=== PATIENT | female | born 1985 | race Caucasian/White ===

== ENCOUNTER 2019-12-14 12:59 | Emergency (ER) | payer SELFPAY ==
[2019-12-14 13:17] VITALS: BP 133/69; PULSE 108; RESP 16; TEMP 36.7; O2SAT 96; BMI 31.9
[2019-12-14 13:20] VITALS: RESP 18
--- NOTE | 2019-12-14 13:38 | ED_ITS ---
HPI - Back Pain/Injury General: Chief Complaint: Back Pain/Injury Stated Complaint: back pain Time Seen by Provider: 12/14/19 13:22 History of Present Illness: HPI Narrative: Patient with back pain the last couple 3 days. Hurts to bend twist move get out of bed. 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 She has a history of low back pain. MD elicited complaint: back pain Onset (ago): day(s) Timing: constant Severity: moderate Similar Symptoms Previously: Yes Quality: sharp and aching Location: lumbar spine Radiation: buttocks Exacerbating factors: movement Relieving factors: immobilization Context: while lifting and turning/twisting Associated symptoms: Deny abdominal pain, chills, fever(s), nausea or vomiting Review of Systems Const: Denies: fever(s), chills or body aches Eyes: Denies: change in vision or blurry vision ENMT: Denies: throat pain or nasal congestion Card: Denies: chest pain or dyspnea on exertion Resp: Denies: dyspnea, productive cough or non-productive cough GI: Denies: abdominal pain, nausea or vomiting Musc: Reports: back pain; Denies: extremity pain Skin/Breast: Denies: rash Neuro: Denies: headache(s) Psych: Denies: anxiety or depression Srikanth/Lymph: Denies: easy bruising PFSH ED PFSH: Social History (Updated 12/14/19 @ 13:20 by Karen Andrews RN) Smoking and tobacco status: current every day smoker Alcohol intake: never Substance/Drug Use: never Female Reproductive History: Date of last menstrual period: 12/01/19 Physical Exam Const: COMMON NORMALS: no acute distress, average body habitus and patient oriented x3 HENMT: COMMON NORMALS: normocephalic HEAD & SCALP: normal to inspection and normocephalic FACE & SINUS: normal facial exam Eye: COMMON NORMALS: conjunctivae normal GENERAL EYE: appearance normal, both eyes and all related structures CONJUNCTIVA: Yes conjunctivae normal Neck/C-Spine: COMMON NORMALS: no JVD Chest: COMMONS NORMALS: normal inspection of the chest Resp: COMMON NORMALS: normal respiratory effort and clear to auscultation bilaterally AUSCULTATION: clear to auscultation bilaterally Cardio: COMMON NORMALS: no JVD, regular rate and regular rhythm RATE: regular rate RHYTHM: regular rhythm GI: COMMON NORMALS: Normal to inspection, nondistended, normoactive bowel sounds present Back/Pelvis: LUMBAR SPINE/LOWER BACK: Yes straight leg raise positive right and Yes straight leg raise positive left Extremity: COMMON NORMALS: normal to inspection and full ROM Neuro: COMMON NORMALS: patient oriented x3 Course Vital Signs: Vital signs: Vital Signs Temperature 98.1 F 12/14/19 13:17 Pulse Rate 108 H 12/14/19 13:17 Respiratory Rate 16 12/14/19 13:17 Blood Pressure 133/69 12/14/19 13:17 Pulse Oximetry 96 12/14/19 13:17 Discharge Plan Discharge Patient Disposition: Home Clinical Impression: Strain of lumbar region Qualifiers: Encounter type: initial encounter Qualified Code(s): S39.012A - Strain of muscle, fascia and tendon of lower back, initial encounter Condition: Stable Prescriptions: New Skelaxin 800 mg tablet 800 mg PO TID PRN (Reason: muscle pain) Qty: 14 RF: 0 prednisone 20 mg tablet 20 mg PO DAILY 11 Days Qty: 11 RF: 0 tramadol 50 mg tablet 50 mg PO Q6H PRN (Reason: pain) Qty: 14 RF: 0 Discharge Orders: Discharge Order (Routine); Ordered 12/14/19 Ordered By: Yaron Mathur Discharge Diet: Usual diet Discharge Activity: Limit activity as instructed Patient Instructions: Lumbar Radiculopathy (ED) Activity Restrictions/Additional Instructions: Follow-up with medical provider as directed. Take medications as prescribed. Return to the ER or your medical provider if condition worsens. Please read and understand discharge instructions. If any questions ask please. 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
[2019-12-14] MEDS: predniSONE 20 mg Tablet 60 MG PO (13:43)
[2019-12-14] MEDS: HYDROcodone-acetaminophen 7.5-325 mg Tablet 1 TAB PO (13:44)
[2019-12-14] MEDS: cyclobenzaprine 10 mg Tablet PO (13:44)
[2019-12-14 13:46] VITALS: RESP 18
== END 2019-12-14 13:46 | disposition home or self-care (01) ==
PROVIDERS: Emergency Provider Nurse Practitioner Family
DX: S39.012A Strain of muscle, fascia and tendon of lower back, initial encounter (principal); F17.210 Nicotine dependence, cigarettes, uncomplicated; X50.0XXA Overexertion from strenuous movement or load, initial encounter; Y93.F2 Activity, caregiving, lifting
CPT/HCPCS: 12345; 99281; 99283; J7512

== ENCOUNTER → 2020-10-15 13:40 | Outpatient (BNVA) | payer MEDICAID, SELFPAY | PROVIDERS: Visit Provider Nurse Practitioner Women's Health | DX: N92.6 Irregular menstruation, unspecified (principal) | CPT/HCPCS: 81025 ==

== ENCOUNTER 2020-10-17 18:11 | Outpatient (CLI) | payer MEDICAID, SELFPAY ==
[2020-10-17 18:31] LABS: Basophils # 0.1 10^3/uL (0.0-0.1); Basophils % 0.6 %; Eosinophils # 0.2 10^3/uL (0.0-0.8); Eosinophils % 1.5 %; Hemoglobin 13.4 g/dL (11.5-15.3); Lymphocytes # 2.9 10^3/uL (0.8-4.8); Lymphocytes % 22.7 %; Mean Corpuscular HGB Conc 32.7 g/dL (30.0-36.0); Mean Corpuscular Hemoglobin 30.1 pg (28.0-34.0); Mean Corpuscular Volume 92.1 fL (81-99); Mean Platelet Volume 8.7 fL (7.4-10.4); Monocytes # 0.7 10^3/uL (0.2-0.9); Monocytes % 5.7 %; Neutrophils % 68.9 %; Nucleated Red Blood Cells % 0 %; Platelet Count 332 10^3/cmm (130-400); Red Blood Count 4.45 10^6/uL (4.1-5.3); Red Cell Distribution Width 13.6 % (12.1-15.1); White Blood Count 12.6 10^3/uL (4.0-10.0)
== END 2020-10-17 18:12 | disposition home or self-care (01) ==
LOC: LAB 18:13
PROVIDERS: Visit Provider Nurse Practitioner Women's Health
DX: O02.1 Missed abortion (principal)
CPT/HCPCS: 36415; 84702; 85025

== ENCOUNTER → 2020-10-21 09:53 | Outpatient (BNVA) | payer MEDICAID, SELFPAY | PROVIDERS: Visit Provider Obstetrics & Gynecology | DX: Z11.3 Encounter for screening for infections with a predominantly sexual mode of transmission (principal); Z12.4 Encounter for screening for malignant neoplasm of cervix; O02.1 Missed abortion | CPT/HCPCS: 87491; 87591; 88175 ==

== ENCOUNTER 2020-10-22 15:22 | Emergency (ER) | payer MEDICAID, SELFPAY ==
[2020-10-22 16:02] VITALS: BP 156/104; PULSE 112; RESP 18; TEMP 36.8; O2SAT 96; BMI 35.3
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
[2020-10-22 17:46] VITALS: BP 136/74; PULSE 98; RESP 18; O2SAT 97
[2020-10-22 18:46] VITALS: BP 135/70; PULSE 94; RESP 16; O2SAT 99
== END 2020-10-22 18:52 | disposition home or self-care (01) ==
PROVIDERS: Emergency Provider Family Medicine
DX: S13.4XXA Sprain of ligaments of cervical spine, initial encounter (principal); V89.2XXA Person injured in unspecified motor-vehicle accident, traffic, initial encounter
CPT/HCPCS: 70450; 71250; 72125; 73070; 74176; 99283

== ENCOUNTER → 2020-11-07 10:54 | Outpatient (BNVA) | payer SELFPAY | PROVIDERS: Visit Provider Obstetrics & Gynecology | DX: O02.1 Missed abortion (principal) | CPT/HCPCS: 84702 ==

== ENCOUNTER 2020-11-17 21:05 | Day surgery (SDC) | payer SELFPAY ==
[2020-11-17 21:17] VITALS: BP 95/63; PULSE 91; RESP 16; TEMP 36.8; O2SAT 94; BMI 32.9
--- NOTE | 2020-11-17 21:35 | ED_ITS ---
HPI - Female Genitourinary General: Chief complaint: Urogenital-Female Stated complaint: MISCARRIAGE @ 1.5 MO AGO, GOING THROUGH 8 PADS/3HR Time Seen by Provider: 11/17/20 21:32 History of Present Illness: HPI Narrative: This patient is a 35-year-old female who presents to the emergency department for vaginal bleeding and passing clots. Patient became very short of breath dizzy and felt like she was going to pass out. Started having hyperventilation. Patient states she has been going through several pads in the past couple hours. Patient states she is been dealing with a miscarriage for the past 6 weeks. She discussed with her DIRECTOR BUSINESS MANAGEMENT to not have a D&C but try to pass it naturally. Patient states she has [facility] and states that everything on her lab work looked good. Patient started this vaginal bleeding has persisted. Will do medical evaluation treat as needed MD elicited complaint: vaginal bleeding Pertinent past history: prior miscarriages Onset (ago): hour(s) Associated symptoms: Deny abdominal pain, headache(s) or nausea Date of Last Menstrual Period: 07/26/20 Review of Systems General: Reports: 10 or more systems reviewed and unremarkable except in HPI and below Const: Denies: fever(s), chills, body aches or fatigue Eyes: Denies: change in vision or blurry vision ENMT: Denies: throat pain, hoarseness or mouth pain Card: Denies: chest pain, palpitations, irregular heart rhythm, edema, swelling of feet/ankles or lightheadedness Resp: Denies: dyspnea, productive cough, non-productive cough, wheezing or pain on inspiration GI: Denies: abdominal pain, nausea or vomiting : Reports: vaginal bleeding; Denies: flank pain, difficulty voiding, dysuria, urinary frequency, urinary urgency or urinary hesitancy Musc: Denies: neck pain, back pain, extremity pain, extremity swelling, joint pain, joint swelling, joint redness, joint warmth or limited range of motion Skin/Breast: Denies: rash, pruritus, erythema or skin tenderness Neuro: Denies: headache(s), numbness in extremities or weakness in extremities Psych: Denies: anxiety or depression PFS ED PFSH: Medical History No pertinent past medical history Denies diabetes, asthma, hypertension, seizures, DVT/PE PCP: None Surgical History Hx of chole[place]ectomy 2006[place] [facility] [place]. [place] History Grandmother Hypertension Maternal Diabetes Maternal Hypercholesteremia Maternal and Paternal Thyroid disease Paternal Ovarian cancer Maternal Grandmother--dx age at younger age, unsure of how old Grandfather Colon cancer Paternal--dx age 60's Denies family history of Heart disease Breast cancer Uterine cancer Stroke Female Reproductive History: Date of last menstrual period: 07/26/20 Physical Exam Const: COMMON NORMALS: no acute distress, average body habitus, patient oriented x3, no limitations, healthy appearing, alert and well nourished HENMT: COMMON NORMALS: normocephalic, atraumatic, hearing grossly normal bilaterally, external ears normal, EAC's normal, TM's normal bilaterally, Normal external nose present, Normal nasal mucous membranes and turbinates present, moist oral mucous membranes, oropharynx normal, dentition normal and gingiva normal HEAD & SCALP: normocephalic and atraumatic NOSE: Normal external nose present and Normal nasal mucous membranes and turbinates present EXTERNAL EAR: Yes external ears normal EXTERNAL AUDITORY CANAL: EAC's normal TYMPANIC MEMBRANE: TM's normal bilaterally Neck/C-Spine: COMMON NORMALS: full ROM, no lymphadenopathy, supple, no meningeal signs, no JVD, Thyroid normal and No carotid bruits THYROID: Thyroid normal Chest: COMMONS NORMALS: normal inspection of the chest, normal palpation of entire chest wall, normal inspection of the breasts and normal palpation of the breasts Breast/axilla inspection: Yes normal inspection of the breasts BREAST/AXILLA PALPATION: Yes normal palpation of the breasts Resp: COMMON NORMALS: normal respiratory effort, No retractions, No use of accessory muscles, clear to auscultation bilaterally and percussion normal AUSCULTATION: clear to auscultation bilaterally PERCUSSION: percussion normal Cardio: COMMON NORMALS: no JVD, regular rate, regular rhythm, S1 normal heart sound present, S2 normal heart sound present, No gallops present (Cardio), No clicks present (Cardio), No murmurs present (Cardio), No rub (Cardio) and Peripheral pulses 2+ throughout RATE: regular rate RHYTHM: regular rhythm HEART SOUNDS: S1 normal heart sound present and S2 normal heart sound present PERIPHERAL PULSES: Peripheral pulses 2+ throughout GI: COMMON NORMALS: Normal to inspection, nondistended, normoactive bowel sounds present, Soft to palpation, non-tender, No hepatosplenomegaly present, no masses and no bruits PALPATION: Yes Soft to palpation and Yes No hepatosplenomegaly present Back/Pelvis: COMMON NORMALS: thoracic and lumbar spine normal to inspection, no thoracic nor lumbar tenderness, thoraco-lumbar ROM normal and straight leg raise negative bilaterally Extremity: COMMON NORMALS: normal to inspection, full ROM, capillary refill normal, no joint enlargement, no clubbing, cyanosis or edema, no calf tenderness and no pedal edema Neuro: COMMON NORMALS: patient oriented x3 SENSORIUM/ORIENTATION: Yes alert MENINGEAL SIGNS: Yes no meningeal signs Course Reevaluation(s): Reevaluation #1: I did discuss at length with patient about needing a D&C. Ultrasound came back and showed patient has 8-week gestational however the patient has had miscarriage approximately 6 weeks ago. There is just the deterioration of the fetus but it does not appear to be passing. Patient is agreeable for admission to the hospital Time: 00:19 Consultations: Consultation #1: I did just speak with DIRECTOR BUSINESS MANAGEMENT . She agrees to admit the patient she will take to the OR for emergent D&C. Time: 00:19 Vital Signs: Vital signs: Vital Signs Temperature 98.2 F 11/17/20 21:17 Pulse Rate 80 11/17/20 23:08 Respiratory Rate 18 11/17/20 23:08 Blood Pressure 116/47 11/17/20 23:08 Pulse Oximetry 97 11/17/20 23:08 MDM - Female Lab Data: Labs: Lab Results 11/17/20 11/17/20 11/17/20 Range/Units 21:45 21:45 21:45 WBC 7.7 (4.0-10.0) 10^3/ uL RBC 4.86 (4.1-5.3) 10^6/u L Hgb 14.4 (11.5-15.3) g/dL Hct 43.2 (37.0-47.0) % MCV 88.9 (81-99) fL MCH 29.6 (28.0-34.0) pg MCHC 33.3 (30.0-36.0) g/dL RDW 13.6 (12.1-15.1) % Plt Count 241 (130-400) 10^3/c mm MPV 9.6 (7.4-10.4) fL Neut % (Auto) 75.0 % Lymph % (Auto) 18.8 % Adams % (Auto) 5.3 % Eos % (Auto) 0.3 % Baso % (Auto) 0.3 % Neut # (Auto) 5.76 (1.8-7.7) 10^3/u L Lymph # (Auto) 1.4 (0.8-4.8) 10^3/u L Adams # (Auto) 0.4 (0.2-0.9) 10^3/u L Eos # (Auto) 0.0 (0.0-0.8) 10^3/u L Baso # (Auto) 0.0 (0.0-0.1) 10^3/u L Nucleated RBC % (a uto) 0 % Nucleated RBCs # 0.0 /100WBC PT (12.1-14.9) SECO NDS INR (0.8-1.2) APTT (23.9-36.7) SECO NDS Sodium 138 (136-145) mmol/L Potassium 2.9 L (3.5-5.1) mmol/L Chloride 102 (98-107) mmol/L Carbon Dioxide 19 L (22-29) mmol/L Anion Gap 19.9 H (5-19) BUN 6 (6-20) mg/dL Creatinine 0.5 (0.5-0.9) mg/dL GFR Calculation 140.4 H (90-130) mL/min Glucose 124 H (65-115) mg/dL Calculated Osmolal ity 285 (285-295) mOsm/k g Calcium 8.7 (8.5-10.5) mg/dL Total Bilirubin 0.4 (0.15-1.2) mg/dL AST 19 (0-32) U/L ALT 22 (0-33) U/L Alkaline Phosphata se 89 (35-105) IU/L Total Protein 7.1 (6.6-8.7) g/dL Albumin 4.2 (3.5-5.2) g/dL Globulin 2.9 (1.3-4.6) g/dL Ser , Laura i-Qnt 24.06 mIU/mL Urine Color (Yellow) Urine Appearance (CLEAR) Urine pH (5-7) Ur Specific Gravit y (1.005-1.030) Urine Protein (Negative) Urine Glucose (UA) (Normal) Urine Ketones (Negative) Urine Blood (Negative) Urine Nitrate (Negative) Urine Bilirubin (Negative) Urine Urobilinogen (Negative) mg/dL Ur Leukocyte Letha ase (Negative) Urine RBC (0-2) /hpf Urine WBC (0-5) /hpf Ur Squamous Epith Cells (0-5) /hpf Amorphous Sediment Urine Bacteria (NONE) /hpf Blood Type A Positive Rho(D) Type Positive / 4+ 11/17/20 11/17/20 Range/Units 22:05 23:28 WBC (4.0-10.0) 10^3/ uL RBC (4.1-5.3) 10^6/u L Hgb (11.5-15.3) g/dL Hct (37.0-47.0) % MCV (81-99) fL MCH (28.0-34.0) pg MCHC (30.0-36.0) g/dL RDW (12.1-15.1) % Plt Count (130-400) 10^3/c mm MPV (7.4-10.4) fL Neut % (Auto) % Lymph % (Auto) % Adams % (Auto) % Eos % (Auto) % Baso % (Auto) % Neut # (Auto) (1.8-7.7) 10^3/u L Lymph # (Auto) (0.8-4.8) 10^3/u L Adams # (Auto) (0.2-0.9) 10^3/u L Eos # (Auto) (0.0-0.8) 10^3/u L Baso # (Auto) (0.0-0.1) 10^3/u L Nucleated RBC % (a uto) % Nucleated RBCs # /100WBC PT 13.80 (12.1-14.9) SECO NDS INR 1.03 (0.8-1.2) APTT 28.4 (23.9-36.7) SECO NDS Sodium (136-145) mmol/L Potassium (3.5-5.1) mmol/L Chloride (98-107) mmol/L Carbon Dioxide (22-29) mmol/L Anion Gap (5-19) BUN (6-20) mg/dL Creatinine (0.5-0.9) mg/dL GFR Calculation (90-130) mL/min Glucose (65-115) mg/dL Calculated Osmolal ity (285-295) mOsm/k g Calcium (8.5-10.5) mg/dL Total Bilirubin (0.15-1.2) mg/dL AST (0-32) U/L ALT (0-33) U/L Alkaline Phosphata se (35-105) IU/L Total Protein (6.6-8.7) g/dL Albumin (3.5-5.2) g/dL Globulin (1.3-4.6) g/dL Ser , Laura i-Qnt mIU/mL Urine Color Red (Yellow) Urine Appearance Cloudy (CLEAR) Urine pH 5 (5-7) Ur Specific Gravit y 1.020 (1.005-1.030) Urine Protein 1+ H (Negative) Urine Glucose (UA) Norm (Normal) Urine Ketones 2+ H (Negative) Urine Blood 3+ H (Negative) Urine Nitrate Negative (Negative) Urine Bilirubin 1+ H (Negative) Urine Urobilinogen 4 H (Negative) mg/dL Ur Leukocyte Letha ase 1+ H (Negative) Urine RBC Too numerous to c nt H (0-2) /hpf Urine WBC 0-4 H (0-5) /hpf Ur Squamous Epith Cells 0-4 H (0-5) /hpf Amorphous Sediment Not Reportable Urine Bacteria Trace (NONE) /hpf Blood Type Rho(D) Type Discharge Plan Discharge Patient Disposition: Placed in Observation Clinical Impression: Incomplete , Retained products of conception, Vaginal bleeding, Orthostasis Condition: Stable Prescriptions: No Action Gummy 400 mcg-35 mg -25 mg-5 mg tablet,chewable PO RF: 0 Coding Level of Care Code 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
--- NOTE | 2020-11-17 21:35 | USR_ITS ---
PROCEDURE INFORMATION: Exam: US First Trimester, Transabdominal and US , Transvaginal Exam date and time: 11/17/2020 9:35 PM Age: 35 years old Clinical indication: complicated by abdominal or pelvic pain; Lower; First trimester; Gestational age or lmp: Should be 12 weeks; ; Additional info: Threated TECHNIQUE: Imaging protocol: Real-time transabdominal obstetrical ultrasound of the maternal pelvis and a first trimester , less than 14 weeks 0 days, with image documentation. Transvaginal imaging was used for better evaluation of the fetus, adnexa, and/or cervix. COMPARISON: US OB transvaginal CC 10/17/2020 2:17 PM FINDINGS: Gestation: Gestational sac and nonviable pole in the lower uterine segment and/or proximal cervix most consistent with developing spontaneous . 0.5 cm endometrial stripe in the fundus consistent with . No movement or heartbeat. The pole appears somewhat amorphous most consistent with non viability for more than 1 day. BIOMETRY: [place]-Rump length: 9.2 mm crown-rump length with EGA 7 weeks 0 days. MATERNAL: Uterus: Unremarkable. Cervix: Unremarkable. Right adnexa: Unremarkable. Left adnexa: Unremarkable. Intraperitoneal space: No intraperitoneal free fluid. US/US OB <=14 wk fetus w transvag IMPRESSION: Gestational sac and nonviable pole in the lower uterine segment and/or proximal cervix most consistent with developing spontaneous .
[2020-11-17] MEDS: sodium chloride 0.9% 1,000 ML 999 ML IV (21:47)
[2020-11-17 21:58] LABS: Basophils % 0.3 %; Eosinophils % 0.3 %; Hematocrit 43.2 % (37.0-47.0); Hemoglobin 14.4 g/dL (11.5-15.3); Lymphocytes # 1.4 10^3/uL (0.8-4.8); Lymphocytes % 18.8 %; Mean Corpuscular HGB Conc 33.3 g/dL (30.0-36.0); Mean Corpuscular Hemoglobin 29.6 pg (28.0-34.0); Mean Corpuscular Volume 88.9 fL (81-99); Mean Platelet Volume 9.6 fL (7.4-10.4); Monocytes # 0.4 10^3/uL (0.2-0.9); Monocytes % 5.3 %; Neutrophils # 5.76 10^3/uL (1.8-7.7); Nucleated Red Blood Cells % 0 %; Platelet Count 241 10^3/cmm (130-400); Red Blood Count 4.86 10^6/uL (4.1-5.3); Red Cell Distribution Width 13.6 % (12.1-15.1); White Blood Count 7.7 10^3/uL (4.0-10.0)
[2020-11-17 22:14] LABS: HCG Quantitative 24.06 mIU/mL
[2020-11-17 22:25] LABS: Alanine Aminotransferase 22 U/L (0-33); Albumin Level 4.2 g/dL (3.5-5.2); Alkaline Phosphatase 89 IU/L (35-105); Anion Gap 19.9 (5-19); Aspartate Amino Transferase 19 U/L (0-32); Blood Urea Nitrogen 6 mg/dL (6-20); Calcium 8.7 mg/dL (8.5-10.5); Carbon Dioxide 19 mmol/L (22-29); Chloride 102 mmol/L (98-107); Globulin 2.9 g/dL (1.3-4.6); Glomerular Filtration Rate 140.4 mL/min (90-130); Glucose 124 mg/dL (65-115); Osmolality Calculated 285 mOsm/kg (285-295); Sodium 138 mmol/L (136-145); Total Bilirubin 0.4 mg/dL (0.15-1.2); Total Protein 7.1 g/dL (6.6-8.7)
[2020-11-17 22:26] LABS: INR 1.03 (0.8-1.2)
[2020-11-17 22:27] LABS: Partial Thromboplastin Time 28.4 SECONDS (23.9-36.7)
[2020-11-17 22:27] LABS: Potassium 2.9 mmol/L (3.5-5.1)
--- NOTE | 2020-11-17 22:31 | PC.NURSE ---
Given bedside toilet for urine specimen.
[2020-11-17] MEDS: potassium chloride ER 20 mEq Tablet 40 MEQ PO (22:58)
[2020-11-17 22:59] VITALS: RESP 18
[2020-11-17] MEDS: ondansetron 2 mg/ML SDV 2 mL 4 MG IVP (22:59)
[2020-11-17] MEDS: morphine 4 mg/mL SDV 1 mL 2 MG IVP (22:59)
[2020-11-17 23:08] VITALS: BP 116/47; PULSE 80; RESP 18; O2SAT 97
--- NOTE | 2020-11-17 23:08 | PC.NURSE ---
Attempting to give urine specimen again.
[2020-11-17 23:42] LABS: Add Urine Culture? Yes; Add Urine Microscopic? YES; Bacteria Urine TRACE /hpf; Bilirubin Urine 1+ (Negative); Blood Urine 3+ (Negative); Glucose Urine UA Norm (Normal); Ketones Urine 2+ (Negative); Leukocyte Esterase Urine 1+ (Negative); Nitrate Urine Negative (Negative); Protein Urine 1+ (Negative); RBC Urine TOO NUMEROUS TO CNT /hpf (0-2); Squamous Epithelial Cell Urine 0-4 /hpf (0-5); Urine Appearance Cloudy (CLEAR); Urine Color Red (Yellow); Urobilinogen Urine 4 mg/dL (Negative); WBC Urine 0-4 /hpf (0-5); pH Urine 5 (5-7)
[2020-11-18] VITALS (10 sets, daily range): BP systolic 113–132; BP diastolic 55–90; PULSE 80–106; RESP 16–27; TEMP 36.6–37; O2SAT 94–98
--- NOTE | 2020-11-18 00:56 | ANES.PREANE2 ---
Pre-Anesthetic Assessment Pre-Anesthetic Assessment: Height/Weight: Height 1.63 m Weight 87.09 kg Temp Pulse Resp BP Pulse Ox 98.2 F 80 20 H 118/78 98 11/17/20 21:17 11/18/20 00:25 11/18/20 00:25 11/18/20 00:25 11/18/20 00:25 Preop Diagnosis: missed Proposed Procedure: Operation Date: 11/18/20 01:25 Proposed Procedures p Dilation And Curettage w/ Suction(Not Applicable) - Vish Howell MD Familial anesthetic complications: none Last intake: 10:30 Potassium tablets w/ small amount of water Social: Social History: Tobacco and No alcohol Exam: Pre-Anes Outpt Exam: alert, oriented x 3, clear to auscultation bilaterally and regular rate & rhythm Airway: Cervical ROM: WNL MP: 3 Dentition: Chipped Metabolic: Metabolic: Morbid obesity Comments: hypokalemia, received oral potassium at 1030 Anesthetic Plan: ASA status: 2E Anesthesia: General Risk of > 500 ml blood loss (7ml/kg in children): No PFSH Anesthesia PFSH: Medical History No pertinent past medical history Denies diabetes, asthma, hypertension, seizures, DVT/PE PCP: None Surgical History Hx of cholecystectomy 2006-laparoscopic procedure performed by Dr. Lopez at [facility] [place]. Family History Grandmother Hypertension Maternal Diabetes Maternal Hypercholesteremia Maternal and Paternal Thyroid disease Paternal Ovarian cancer Maternal Grandmother--dx age at younger age, unsure of how old Grandfather Colon cancer Paternal--dx age 60's Denies family history of Heart disease Breast cancer Uterine cancer Stroke Female Reproductive History: Date of last menstrual period: 07/26/20 Data Anesthesia CBC & Chem 7: 11/17/20 21:45 11/17/20 21:45 Other Labs: Laboratory Results - last 48 hr 11/17/20 11/17/20 11/17/20 21:45 21:45 21:45 WBC 7.7 RBC 4.86 Hgb 14.4 Hct 43.2 MCV 88.9 MCH 29.6 MCHC 33.3 RDW 13.6 Plt Count 241 MPV 9.6 Neut % (Auto) 75.0 Lymph % (Auto) 18.8 [place] % (Auto) 5.3 Eos % (Auto) 0.3 Baso % (Auto) 0.3 Neut # (Auto) 5.76 Lymph # (Auto) 1.4 [place] # (Auto) 0.4 Eos # (Auto) 0.0 Baso # (Auto) 0.0 Nucleated RBC % (auto) 0 Nucleated RBCs # 0.0 PT INR APTT Sodium 138 Potassium 2.9 L Chloride 102 Carbon Dioxide 19 L Anion Gap 19.9 H BUN 6 Creatinine 0.5 GFR Calculation 140.4 H Glucose 124 H Calculated Osmolality 285 Calcium 8.7 Total Bilirubin 0.4 AST 19 ALT 22 Alkaline Phosphatase 89 Total Protein 7.1 Albumin 4.2 Globulin 2.9 Ser , Semi-Qnt 24.06 Urine Color Urine Appearance Urine pH Ur Specific [place] Urine Protein Urine Glucose (UA) Urine Ketones Urine Blood Urine Nitrate Urine Bilirubin Urine Urobilinogen Ur Leukocyte Esterase Urine RBC Urine WBC Ur Squamous Epith Cells Amorphous Sediment Urine Bacteria Blood Type Cancelled Rho(D) Type Cancelled 11/17/20 11/17/20 22:05 23:28 WBC RBC Hgb Hct MCV MCH MCHC RDW Plt Count MPV Neut % (Auto) Lymph % (Auto) [place] % (Auto) Eos % (Auto) Baso % (Auto) Neut # (Auto) Lymph # (Auto) [place] # (Auto) Eos # (Auto) Baso # (Auto) Nucleated RBC % (auto) Nucleated RBCs # PT 13.80 INR 1.03 APTT 28.4 Sodium Potassium Chloride Carbon Dioxide Anion Gap BUN Creatinine GFR Calculation Glucose Calculated Osmolality Calcium Total Bilirubin AST ALT Alkaline Phosphatase Total Protein Albumin Globulin Ser , Semi-Qnt Urine Color Red Urine Appearance Cloudy Urine pH 5 Ur Specific [place] 1.020 Urine Protein 1+ H Urine Glucose (UA) Norm Urine Ketones 2+ H Urine Blood 3+ H Urine Nitrate Negative Urine Bilirubin 1+ H Urine Urobilinogen 4 H Ur Leukocyte Esterase 1+ H Urine RBC Too numerous to cnt H Urine WBC 0-4 H Ur Squamous Epith Cells 0-4 H Amorphous Sediment Not Reportable Urine Bacteria Trace Blood Type Rho(D) Type Cardiac Studies: No Data to Display
[2020-11-18 01:00] LABS: SARS Covid-2 Antigen Positive (Negative)
--- NOTE | 2020-11-18 01:05 | P.HP_ITS ---
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 Hays is a 35 year old LMP of 07/26/2020 and an EDC of 05/02/2021 who presents with a missed of 8 weeks. She had her OB intake visit and was supposed to be 10 weeks and had an ultrasound performed on 10/17/2020 that showed findings consistent with demise at 8 weeks. I saw her in the clinic on 10/21/2020 on Discussing options for management of the missed she desired to await spontaneous passage and declined use of Cytotec or surgery. She had contacted us in the clinic with updates every couple of weeks and had not really passed anything. She states that she had mild bleeding on and off however had heavy vaginal bleeding starting early on Tuesday and it progressively got heavier and she reports that in the 2 to 3 hours prior to coming to the emergency room she went through about 8-9 pads and as her bleeding was heavy and she was having a lot of cramping and pain she came into the ER for further evaluation. She was a little dizzy however denied nausea, vomiting, fever, chills, shortness of breath, cough. She denied any other changes in her history since I last saw her Physical exam: General: well developed,, well nourished, no acute distress Neuro/Psych: alert, oriented to time, place and person. Neck: No thyromegaly Heart: S1-S2 heard, regular rate and rhythm. Lungs: Clear to auscultation bilaterally. Breast: Deferred Abdomen: Soft, obese, nontender, no rebound, no guarding, no hepatosplenomegaly, no umbilical hernia Legs: No pedal edema no calf tenderness. Negative Homans sign Back: No CVA tenderness Skin: Normal over abdomen with stretch garcia Pelvic exam: External genitalia: Appears normal, no lesions, shaved hair Urethral meatus: Normal size, normal location Urethra: Nontender, no masses Bladder: Nontender Vagina: Appears normal, normal estrogen, no lesion Cervix: Appears normal, no CMT, no discharge Uterus: 10 weeks, anteverted, nontender, cervix dilated Adnexa: No adnexal masses or tenderness Perineum/anus: Intact Rectum: Deferred Assessment and plan: -Incomplete : ----> Discussed with patient that given her heavy bleeding in the past but her cervix is minimally low when she is having incomplete . Ultrasound today shows products of conception within the uterus. Discussed at this time given her heavy bleeding I am recommending surgery to complete the miscarriage. Discussed surgery-suction and curettage and discussed risks of surgery including bleeding, infection, risks of anesthesia, risk of uterine perforation etc. Discussed usual recovery and postoperative restrictions of pelvic rest for 6 we eks and no heavy lifting for 10 days. Discussed risk of blood transfusion and she agrees. -Surgical consents were signed for suction dilation and curettage and OR crew notified given patient's heavy bleeding. -Although hemoglobin and vital signs are stable patient crossmatched for 2 units in case she has heavy bleeding. -Antibiotics prior to surgery -Hypokalemia-we will give potassium IV at time of surgery and discharged home on p.o. potassium. -All her questions were answered and she agrees with the current plan of care. I spent 35 minutes with the patient in discussion and counseling as documented above This documentation was created by [employer] online communications specialist software (known for inherent online communications specialist error). Every effort was made to assure accuracy of online communications specialist. Any obvious errors or omissions should be clarified with the author of the document. 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 [facility] [place] Family History Grandmother Hypertension Maternal Diabetes Maternal Hypercholesteremia Maternal and Paternal Thyroid disease Paternal Ovarian cancer Maternal Grandmother--dx age at younger age, unsure of how old Grandfather Colon cancer Paternal--dx age 60's Denies family history of Heart disease Breast cancer Uterine cancer Stroke Supplemental [facility] Information: - Tobacco Use: Started smoking at age 19 and has smoked up to 2 packs per day since then. Currently smoking about 1 pack per day. 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 Other Female Reproductive History: Menstrual History Comment: Menarche at the age of 12 with regular 28-day cycles lasting for 5 to 7 days. Sexual History: Sexual History Comment: Coitarche at age 18, less than 5 lifetime partners, has been with her current partner, Oscar, since 2010. STD History Comment: Reports having had genital Herpes-- last outbreak since . Denies other STDs. Contraception: Contraception History Comment: Reports having tried control pills for about 3 to 4 months after her first delivery. Did not like them and stopped taking them. She has either used abstinence or condoms for contraception since then. Is unsure about what she wants to do right now. History History History 3 Term 2 Miscarriages/Ectopic 0 0 Living Children 2 Other History: G-3/P-2,0,0,2 x 2 1 -Female,(Oanh) 6 lbs 7 oz, 40 weeks, 28 hours of labor, Epidural, Vaginal delivery, [place] God[place] [facility] [place] no complications. 2- 02/15/15 - Female(Tong) - 7#,6.5oz - term vaginal delivery without complications - labor augmented with pitocin - [place] [facility] [place]. 3--- current ---missed at 8 weeks--awaiting spontaneous miscarriage Vitals/I&O/Wt Last Vital Signs Temp 98.2 F 11/17/20 21:17 Pulse 80 11/18/20 00:25 Resp 20 H 11/18/20 00:25 BP 118/78 11/18/20 00:25 Pulse Ox 98 11/18/20 00:25 Weight last 48 hrs Weight 192 lb Data : 11/17/20 21:45 11/17/20 21:45 Attestations Medical Necessity Statement*: Patient will need surgery for incomplete ---as long as surgery is fine and bleeding is stable after she will be able to be discharged home. Coding Level of Care Code Acute Supervisor Sewing Department for Zeus Aguilar
[2020-11-18] MEDS: sodium chloride 0.9% 1,000 ML 30 ML IV (01:18)
--- NOTE | 2020-11-18 02:29 | P.OP_ITS ---
Operative Report Date of procedure: November 18, 2020 OPERATIVE REPORT Date of surgery: 11/18/2020 Date of dictation: 11/18/2020 Preoperative diagnosis: Incomplete Postoperative diagnosis/findings: 10-week size anteverted uterus with dilated cervix and products of conception noted in the lower uterine segment/cervix, no adnexal masses, on examination under anesthesia grade 2-3 cystocele, grade 2 uterine prolapse, grade 1 rectocele. Procedure done: Dilation and suction curettage Specimens removed/disposition of specimens: Products of conception including placenta Surgeon: Dr. Vish Chance assistant spa manager: Nathaly Boothe Anesthesia: Endotracheal tube intubation Estimated blood loss: 200 ml Intravenous fluids: 400 mL of LR Urine output: 50 mL of clear urine via red rubber catheter prior to start of surgery Medications: As per anesthesia records Complications: None, patient was taken to the recovery room in a stable condition PROCEDURE: After consents were signed , the patient was taken to the operating room where she was placed under general endotracheal tube anesthesia without any difficulty. She was placed in dorsal lithotomy position and exam under anesthesia showed a 10-week size anteverted uterus with dilated cervix with clot/products of conception in the lower uterine segment/cervix. She was then prepped and draped in the usual sterile fashion. Weighted speculum and lateral wall retractors were used to visualize the cervix and the anterior lip of cervix was grasped with a tenaculum. Ring forceps was used to evacuate products of conception placenta and tissue from the cervix. Once this was done the #7 rigid suction curette was placed into the uterus without difficulty and advanced to the fundus. The curette was attached to suction suction curettage was performed, gritty sensation was noted on all 4 diggs of the uterus. The suction curet was removed and curettage was repeated with a sharp curet. All the products obtained were sent to pathology labeled as products of conception. After this was done bimanual exam showed ay7sred size uterus. As there was still active bleeding from the cervix she was given Pitocin IV and 800 mcg of Cytotec per rectum. Bimanual massage was continued and the uterus was noted to form done and was 8 weeks in size. Bleeding was noted to be minimal. Tenaculum was removed from the cervix and no active bleeding tenaculum site. All instruments were removed from the vagina. The patient was extubated without difficulty and taken to the recovery room in a stable condition. FOLLOW UP: Follow-up in 2 weeks and 6 weeks with surgeon MEDICATION ON DISCHARGE: Colace 100 mg by mouth every 12 hours when necessary constipation, 30 tablets, no refills Ibuprofen 800 mg by mouth every 8 hours when necessary pain, 60 tablets, no refills. [place] 5/325 mg 1 tablet by mouth every 6 hours when necessary pain,10 tablets, no refills Cytotec 200 mcg p.o. every 6 hours-6 doses Potassium chloride 20 mEq every 12 hours-4 doses Continue other home medication DISPOSITION: Home in a stable condition This documentation was created by [employer] pick up worker software (known for inherent pick up worker error). Every effort was made to assure accuracy of pick up worker. Any obvious errors or omissions should be clarified with the author of the document. Pre-op Diagnosis: missed History History History 3 Term 2 Miscarriages/Ectopic 1 0 Living Children 2 Other History: G-3/P-2,0,1,2 x 2 SAB X1-D&C done 1 -Female,(Oanh) 6 lbs 7 oz, 40 weeks, 28 hours of labor, Epidural, Vaginal delivery, Dr. Godinez at [facility] [place], no complications. 2- 02/15/15 - Female(Brilee) - 7#,6.5oz - term vaginal delivery without complications - labor augmented with pitocin - epidural - [facility] [place], Dr. Lopez. 3----> 11/18/2020---incomplete -D&C performed by Dr. Chance at [facility] [place]. She was diagnosed with a missed at 8 weeks and was awaiting spontaneous and had heavy bleeding and had an incomplete requiring surgery. Pathology pending [facility] Medical History No pertinent past medical history Denies diabetes, asthma, hypertension, seizures, DVT/PE PCP: None Surgical History (Updated 11/18/20 @ 02:34 by Vish Howell MD) Hx of cholecystectomy 2005-laparoscopic procedure performed by Dr. Lopez at [facility] [place]. S/P dilation and curettage 11/18/2020----dilation and suction curettage for incomplete of a missed performed by Dr. Chance at [facility] [place]. -----> pathology pending. Family History Grandmother Hypertension Maternal Diabetes Maternal Hypercholesteremia Maternal and Paternal Thyroid disease Paternal Ovarian cancer Maternal Grandmother--dx age at younger age, unsure of how old Grandfather Colon cancer Paternal--dx age 60's Denies family history of Heart disease Breast cancer Uterine cancer Stroke
--- NOTE | 2020-11-18 02:35 | P.PCN_ITS ---
PACU note PACU note: VSS, Good respiratory effort, report to DENTISTRY PROFESSOR Post-Anesthesia Exam: awake
--- NOTE | 2020-11-18 02:35 | PM.PACU ---
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
[2020-11-18] MEDS: miSOPROStol 200 mcg Tablet 800 MCG VAGINAL (02:37)
[2020-11-18] MEDS: potassium chloride ER 20 mEq Tablet PO (02:46)
== END 2020-11-18 03:22 | disposition home or self-care (01) ==
LOC: ER 11-18 00:36 → OPS 11-18 01:38
PROVIDERS: Emergency Provider Emergency Medicine; Visit Provider Obstetrics & Gynecology
PROC: (CPT 59812; principal; 2020-11-18 01:15)
DX: O03.4 Incomplete spontaneous abortion without complication (principal); E66.01 Morbid (severe) obesity due to excess calories; Z68.33 Body mass index [BMI] 33.0-33.9, adult
CPT/HCPCS: 59812; 36415; 76801; 76817; 80053; 81001; 84702; 85025; 85610; 85730; 86850; 86900; 86920; 87086; 87426; 88305; 96361; 96365; 96375; J0330; J2270; J2405; J2704; J3010; J3490; J7030

== ENCOUNTER → 2024-02-28 16:04 | Outpatient (BNVA) | payer OTHER, SELFPAY | PROVIDERS: Visit Provider Emergency Medicine | DX: J02.9 Acute pharyngitis, unspecified (principal) | CPT/HCPCS: 87071; 87880 ==

== ENCOUNTER 2024-08-15 21:25 | Emergency (ER) | payer OTHER, SELFPAY ==
[2024-08-15 21:36] VITALS: BP 154/82; PULSE 108; RESP 18; TEMP 36.9; O2SAT 96; BMI 35.2
--- NOTE | 2024-08-15 23:18 | W.ED.EAR ---
HPI - Ear Problem General: Chief complaint: Ear Stated complaint: double ear infection worse now Time Seen by Provider: 08/15/24 22:48 Source: patient Mode of arrival: ambulatory Limitations: no limitations History of Present Illness: Patient is a 39-year-old female presenting to the emergency department planing of bilateral ear pain. On Tuesday she was started on Augmentin for this with walk-in. States pain has persisted, has been taking [id number] pain medications and Flonase. No hearing loss, discharge from the ears, fevers, vomiting, or other major symptoms at this time. No pertinent past medical history. MD Complaint: ear pain Location: bilateral Duration: constant Severity: moderate Discharge from ear: no Associated symptoms: Reports ear or mastoid pain; Denies fever(s), headache(s), neck pain or tinnitus Treatment prior to arrival: other (abx) Related Data Home Medications ?Medication ?Instructions ?Recorded ?Confirmed cetirizine 10 mg tablet (Zyrtec) 10 mg PO DAILY PRN 02/28/24 08/13/24 Previous Rx's ?Medication ?Instructions ?Recorded fluticasone propionate 50 1 spray intranasal DAILY PRN 05/30/23 mcg/actuation nasal allergy symptoms #16 grams spray,suspension (Flonase Allergy Relief) ibuprofen 800 mg tablet 800 mg PO Q8H PRN pain #45 tabs 02/28/24 amoxicillin 875 mg-potassium 1 tab PO BID 7 days #14 tabs 08/13/24 clavulanate 125 mg tablet prednisone 20 mg tablet 60 mg (3 x 20 mg) PO ONCE 5 days 08/15/24 #15 tabs Allergies Allergy/AdvReac Type Severity Reaction Status Date / Time No Known Allergies Allergy Verified 08/15/24 21:38 Review of Systems General: Reports: 10 or more systems reviewed and unremarkable except in HPI and below Const: Denies: fever(s), chills or fatigue Eyes: Denies: change in vision ENMT: Reports: ear or mastoid pain and sinus pain; Denies: ear discharge, change in hearing or tinnitus Card: Denies: chest pain, palpitations, swelling of feet/ankles or lightheadedness Resp: Denies: dyspnea, productive cough or wheezing GI: Denies: abdominal pain, nausea, vomiting, diarrhea or constipation : Denies: flank pain, difficulty voiding, dysuria or urinary frequency Musc: Denies: neck pain, back pain or joint pain Skin/Breast: Denies: rash Neuro: Denies: headache(s), numbness in extremities or weakness in extremities PFSH ED PFSH: Medical History No pertinent past medical history Denies diabetes, asthma, hypertension, seizures, DVT/PE PCP: None Surgical History S/P dilation and curettage 11/18/2020----dilation and suction curettage for incomplete of a missed performed by Dr. Chance at [facility] [place]. -----> pathology showed placental tissue and chorionic villi. No molar . Hx of cholecystectomy 2005-laparoscopic procedure performed by Dr. Lopez at [facility] [place]. Family History Grandmother Hypertension Maternal Diabetes Maternal Hypercholesteremia Maternal and Paternal Thyroid disease Paternal Ovarian cancer Maternal Grandmother--dx age at younger age, unsure of how old Grandfather Colon cancer Paternal--dx age 60's Denies family history of Heart disease Breast cancer Uterine cancer Stroke Social History Smoking and tobacco/nicotine status: current every day tobacco/nicotine user Substance/Drug Use: never Female Reproductive History: Date of last menstrual period: 07/25/24 Physical Exam Const: COMMON NORMALS: no acute distress and no limitations GENERAL APPEARANCE: cooperative, comfortable and well developed ORIENTATION/CONSCIOUSNESS: Yes awake HENMT: COMMON NORMALS: normocephalic, atraumatic, hearing grossly normal bilaterally, external ears normal, EAC's normal and TM's normal bilaterally HEAD & SCALP: normocephalic and atraumatic EXTERNAL EAR: Yes external ears normal EXTERNAL AUDITORY CANAL: EAC's normal TYMPANIC MEMBRANE: TM's normal bilaterally Eye: COMMON NORMALS: Equal, round and reactive pupils present, EOMs intact bilaterally and conjunctivae normal CONJUNCTIVA: Yes conjunctivae normal PUPIL: Yes Equal, round and reactive pupils present Neck/C-Spine: COMMON NORMALS: full ROM, supple and no JVD Resp: COMMON NORMALS: normal respiratory effort, No retractions, No use of accessory muscles and clear to auscultation bilaterally AUSCULTATION: clear to auscultation bilaterally Cardio: COMMON NORMALS: no JVD, regular rate, regular rhythm, No clicks present (Cardio), No murmurs present (Cardio) and No rub (Cardio) RATE: regular rate RHYTHM: regular rhythm Extremity: COMMON NORMALS: normal to inspection, full ROM and capillary refill normal Skin: COMMON NORMALS: no rashes or lesions noted GENERAL SKIN EXAM: no rashes or lesions noted Course Vital Signs: Vital signs: Vital Signs Temperature 98.5 F 08/15/24 21:36 Pulse Rate 108 H 08/15/24 21:36 Respiratory Rate 18 08/15/24 21:36 Blood Pressure 154/82 08/15/24 21:36 Pulse Oximetry 96 08/15/24 21:36 Oxygen Delivery Me thod Room Air 08/15/24 21:36 MDM - Ear Medical Decision Making Patient presenting with bilateral ear pain, started on Augmentin Tuesday for bilateral ear infection. Here her ears do not look infected. States she has been taking Flonase at home along with ibuprofen and Tylenol. Will give her shot of Decadron here and [place] for pain, prescribed prednisone but ultimately have her see ENT for her continued bilateral ear pain. Her vitals are unremarkable no need for lab work or further imaging at this time. Told her she can continue the Augmentin and return with any new or worsening. No radiology studies performed this visit Discharge Plan Discharge Patient Disposition: Home Clinical Impression: Acute pain of both ears Condition: Stable Prescriptions: New prednisone 20 mg tablet 60 mg PO ONCE 5 Days Qty: 15 0RF No Action cetirizine [Zyrtec] 10 mg tablet 10 mg PO DAILY PRN ibuprofen 800 mg tablet 800 mg PO Q8H PRN (Reason: pain) Qty: 45 0RF fluticasone propionate [Flonase Allergy Relief] 50 mcg/actuation spray,suspension 1 spray intranasal DAILY PRN (Reason: allergy symptoms) Qty: 16 0RF Rx Instructions: administer into each nostril amoxicillin-pot clavulanate 875-125 mg tablet 1 tab PO BID 7 Days Qty: 14 0RF Discharge Orders: Discharge ED (Routine); Ordered 08/15/24 Ordered By: Von Abdul Activity Restrictions/Additional Instructions: Follow-up with ENT. Please take prednisone and continue taking the antibiotics. Ibuprofen and Tylenol. Continue Flonase. Return with any fever, hearing loss, or other concerns. Print Language: Belarusian Coding Level of Care Code ED Brush Clearing Laborer for Zeus Aguilar
[2024-08-15] MEDS: HYDROcodone-acetaminophen 7.5-325 mg Tablet 1 TAB PO (23:25)
[2024-08-15] MEDS: dexamethasone 10 mg/mL INJ IM (23:25)
[2024-08-15 23:29] VITALS: BP 139/82; PULSE 77; O2SAT 98
--- NOTE | 2024-08-16 13:32 | DCPLANNER ---
faxed referral packet to ent (kayleen)
== END 2024-08-15 23:30 | disposition home or self-care (01) ==
PROVIDERS: Emergency Provider Physician Assistant
DX: H92.03 Otalgia, bilateral (principal)
CPT/HCPCS: 96372; 99284; J1100; J9999

== ENCOUNTER 2024-11-01 13:27 | Outpatient (CLI) | payer OTHER, SELFPAY ==
--- NOTE | 2024-11-01 13:31 | CT_ITS ---
WS: [id number] CT NECK TECHNIQUE: Contrast-enhanced CT of the neck with coronal and sagittal reformatted images. CLINICAL INFORMATION: MASS/UNSPECIFIED DZ OF PHARYNX COMPARISON: None. DLP: 208.[address] scans at [facility] use at least one of these dose optimization techniques: automated exposure control; mA and/or kV adjustment per patient size (includes targeted exams where dose is matched to clinical indication); or iterative reconstruction. FINDINGS: Dental artifact degrades some images at the tongue base. Chronic sclerosis RIGHT mastoid. LEFT mastoid air cells are well aerated. Mucosal thickening in the ethmoid air cells. Tiny retention cyst RIGHT maxillary sinus. Markedly enlarged adenoids for patient this age with polypoid thickening anteriorly. This protrudes into the nasopharyngeal airway. Recommend direct visualization. Associated moderate narrowing of the nasopharyngeal airway. Recommend correlation for GABBY. Normal [place] tonsils. Normal parapharyngeal f at. Parotid glands are normal. Normal submandibular glands. Normal vallecula and piriform sinuses. No evidence of supraglottic or glottic mass. Normal subglottic airway. Normal thyroid gland. Lung apices are well aerated. LEFT vertebral artery arises from the aortic arch. This is a normal variant. No cervical lymphadenopathy. CT/CT neck w con* [id number] IMPRESSION: 1. Marked prominent relatively symmetric hypertrophy of the adenoids with prom inent polypoid protuberance anteriorly into the nasopharyngeal airway. Recommen d direct visualization and ENT consultation with tissue sampling if indicated. Associated moderate narrowing of the nasopharyngeal airway. Recommend correlati on for GABBY symptoms 2. No evidence of supraglottic or glottic mass. Normal subglottic airway. 3. Sclerosis of the RIGHT mastoid presumably due to recurrent mastoiditis and otitis media. LEFT mastoid air cells are well aerated. 4. Mild mucosal thickening in the ethmoid air cells. Maxillary sinuses and par tially visualized sphenoid sinus are well aerated. 5. Normal salivary glands. 6. LEFT vertebral artery arises from the aortic arch, normal variant.
[2024-11-01] MEDS: iohexol 350 mg/mL 500 mL Btl (per mL) IV (13:56)
== END 2024-11-01 13:28 | disposition home or self-care (01) ==
LOC: RAD 13:28
PROVIDERS: Visit Provider Otolaryngology
DX: J39.2 Other diseases of pharynx (principal); J35.2 Hypertrophy of adenoids
CPT/HCPCS: 70491

== ENCOUNTER → 2025-04-29 14:53 | Outpatient (BNVA) | payer OTHER, SELFPAY | PROVIDERS: Visit Provider Family Medicine | DX: N39.41 Urge incontinence (principal) | CPT/HCPCS: 81000 ==